=== PATIENT | female | born 1990 | race Caucasian/White ===

== ENCOUNTER 2016-09-06 15:47 | Emergency (ER) | payer OTHER ==
[~2016-09-06] VITALS: Ht 165.1 cm; Wt 108.9 kg
[2016-09-06 15:47] VITALS: BP 138/95
[~2016-09-06 15:47] MED LIST: AMOXICILLIN875 MG PO; FLAGYL500 MG PO; FLOXIN OTI0.3 %/5 M1 OT; IBUPROFEN 600600 M1 PO; KEFLEX500 MG PO; NOHOMEMEDICATIONS; NORCO 5-325 TA1 EACH PO; NORCO 7.5-3251 EACH PO; PRENATAL COMPL1 EACH PO; TRINATE TABLET1 TAB PO; TUMS PO
== END 2016-09-06 16:28 | disposition home or self-care (01) ==
LOC: ER 15:47
DX: Z32.02 Encounter for pregnancy test, result negative (principal); Z88.5 Allergy status to narcotic agent

== ENCOUNTER 2017-05-26 16:27 | Emergency (ER) | payer OTHER ==
[~2017-05-26] VITALS: Ht 165.1 cm; Wt 112.0 kg
[2017-05-26] MEDS ORDERED: PENICILLIN V P500 MG PO (16:45)
[2017-05-26] MEDS ORDERED: TRAMADOL 50 MG50 MG PO (16:50)
== END 2017-05-26 17:04 | disposition home or self-care (01) ==
LOC: ER 16:27
DX: K02.9 Dental caries, unspecified (principal); F17.210 Nicotine dependence, cigarettes, uncomplicated; Z88.8 Allergy status to other drugs, medicaments and biological substances; Z98.890 Other specified postprocedural states

== ENCOUNTER 2017-06-11 09:18 | Emergency (ER) | payer OTHER ==
[~2017-06-11] VITALS: Ht 160 cm; Wt 81.7 kg
[~2017-06-11 09:18] MED LIST changes: +PENICILLIN V P500 MG PO; +TRAMADOL 50 MG50 MG PO
[2017-06-11 10:08] LABS: ABSOLUTE NEUTROPHILS 6.5 thou/uL (1.4-8.2); BASOPHILS 0.8 % (0.0-2.0); EOSINOPHILS 0.8 % (0.0-3.0); HEMATOCRIT 38.6 % (37.0-47.0); HEMOGLOBIN 12.8 gm/dL (12.0-15.0); LYMPHOCYTES 25.7 % (24.0-44.0); MCH 26.5 pg (26.0-34.0); MCHC 33.1 g/dL (28.0-37.0); MCV 80.2 fL (80.0-100.0); PLATELET COUNT 308 thou/uL (150-400); POLYS 67.7 % (36.0-66.0); RBC 4.82 mil/uL (4.20-5.00); RDW 14.7 % (10.5-14.5); WBC 9.6 thou/uL (4.0-11.0)
[2017-06-11 10:12] LABS: ANION GAP 10 mmol/L (7-16); BUN 8 mg/dL (7-18); CALCIUM 8.7 mg/dL (8.5-10.1); CHLORIDE 107 mmol/L (98-107); CO2 24 mmol/L (21-32); CREATININE 0.9 mg/dL (0.6-1.0); GLUCOSE 120 mg/dL (74-106); POTASSIUM 3.6 mmol/L (3.5-5.1); SODIUM 141 mmol/L (136-145)
[2017-06-11 10:18] LABS: ALBUMIN 3.5 g/dL (3.4-5.0); DIRECT BILIRUBIN < 0.1 mg/dL (<0.1-0.3); LIPASE 102 U/L (73-393); SGOT 18 U/L (15-37); SGPT 22 U/L (30-65); TOTAL BILIRUBIN 0.3 mg/dL (<0.1-1.0); TOTAL PROTEIN 7.9 g/dL (6.4-8.2)
[2017-06-11 10:22] LABS: URINE BILIRUBIN 1+ (Negative); URINE BLOOD 3+ (Negative); URINE CLARITY SL CLOUDY; URINE COLOR YELLOW; URINE GLUCOSE-RANDOM* NEGATIVE (Negative); URINE KETONES NEGATIVE (Negative); URINE LEUKOCYTES NEGATIVE (Negative); URINE NITRITE NEGATIVE (Negative); URINE PROTEIN (DIPSTICK) 2+ (Negative); URINE SPECIFIC GRAVITY >= 1.030 (1.005-1.035); URINE UROBILINOGEN 0.2 E.U./dl (0.2-1.0)
[2017-06-11 10:28] LABS: ICTOTEST (BILI CONFIRMATORY) Negative (Negative)
[2017-06-11 10:29] LABS: AMORPHOUS URATES Few /LPF (None Seen); CASTS None Seen /LPF (None Seen); SQUAMOUS 4-10 Moderate /LPF (0-3); URINE RBC >20 Many /HPF (0-2); URINE WBC 6-15 Few /HPF (0-5)
[2017-06-11 10:30] LABS: MUCUS 0-3 Light strn/LPF (None Seen)
[2017-06-11] MEDS ORDERED: ONDANSETRON HCL4 M2 PO (11:16)
[2017-06-11] MEDS ORDERED: KEFLEX500 M1 PO (11:16)
[2017-06-11] MEDS ORDERED: FLOMAX0.4 MG PO (11:16)
[2017-06-11] MEDS ORDERED: IBUPROFEN 600600 M1 PO (11:16)
[2017-06-11] MEDS ORDERED: NORCO 5-325 TA1 EACH PO (11:16)
== END 2017-06-11 12:43 | disposition home or self-care (01) ==
LOC: ER 09:18
PROVIDERS: Nurse Practitioner
DX: N20.0 Calculus of kidney (principal); N39.0 Urinary tract infection, site not specified; F17.210 Nicotine dependence, cigarettes, uncomplicated; Z98.890 Other specified postprocedural states; Z88.8 Allergy status to other drugs, medicaments and biological substances

== ENCOUNTER 2017-08-18 00:22 | Emergency (ER) | payer OTHER ==
[~2017-08-18] VITALS: Ht 165.1 cm; Wt 104.3 kg
[~2017-08-18 00:22] MED LIST changes: +FLOMAX0.4 MG PO; +KEFLEX500 M1 PO; +ONDANSETRON HCL4 M2 PO
[2017-08-18 01:33] LABS: URINE BILIRUBIN NEGATIVE (Negative); URINE BLOOD NEGATIVE (Negative); URINE CLARITY CLEAR; URINE COLOR YELLOW; URINE GLUCOSE-RANDOM* NEGATIVE (Negative); URINE KETONES NEGATIVE (Negative); URINE LEUKOCYTES-REFLEX NEGATIVE (Negative); URINE NITRITE-REFLEX NEGATIVE (Negative); URINE PROTEIN (DIPSTICK) NEGATIVE (Negative); URINE SPECIFIC GRAVITY >= 1.030 (1.005-1.035); URINE UROBILINOGEN 0.2 E.U./dl (0.2-1.0)
[2017-08-18] MEDS ORDERED: NAPROSYN500 MG PO (01:42)
[2017-08-18] MEDS ORDERED: ZOFRAN ODT8 MG PO (01:42)
== END 2017-08-18 03:47 | disposition home or self-care (01) ==
LOC: ER 00:22
PROVIDERS: Emergency Medicine
DX: R10.2 Pelvic and perineal pain (principal); T83.89XA Other specified complication of genitourinary prosthetic devices, implants and grafts, initial encounter; R11.2 Nausea with vomiting, unspecified; F17.210 Nicotine dependence, cigarettes, uncomplicated; Z98.890 Other specified postprocedural states; Z88.8 Allergy status to other drugs, medicaments and biological substances; Y84.9 Medical procedure, unspecified as the cause of abnormal reaction of the patient, or of later complication, without mention of misadventure at the time of the procedure; Y92.89 Other specified places as the place of occurrence of the external cause

== ENCOUNTER 2017-12-10 16:12 | Emergency (ER) | payer OTHER ==
[~2017-12-10 16:12] MED LIST changes: +NAPROSYN500 MG PO; +ZOFRAN ODT8 MG PO
[2017-12-10 16:22] VITALS: BP 147/79
== END 2017-12-10 19:05 | disposition left against medical advice (07) ==
LOC: ER 16:12
DX: Z53.21 Procedure and treatment not carried out due to patient leaving prior to being seen by health care provider (principal)